=== PATIENT | female | born 1950 | race Caucasian/White ===

== ENCOUNTER 2020-01-23 19:10 | Emergency (ER) | payer OTHER ==
[~2020-01-23] VITALS: Ht 160 cm; Wt 90.7 kg
[2020-01-23] MEDS ORDERED: LISINOPRIL30 MG PO (21:04)
[2020-01-23] MEDS ORDERED: BUPROPION XL150 MG PO (21:04)
[2020-01-23] MEDS ORDERED: LEVOTHYROXINE125 MCG PO (21:04)
[2020-01-23] MEDS ORDERED: ZETIA10 MG PO (21:04)
[2020-01-23] MEDS ORDERED: ALPRAZOLAM 0.50.5 M1 PO (21:04)
[2020-01-23] MEDS ORDERED: QUETIAPINE FUM300 M1 PO (21:05)
[2020-01-23 21:14] VITALS: BP 173/86
== END 2020-01-23 21:29 | disposition home or self-care (01) ==
LOC: ER 19:10
DX: S01.01XA Laceration without foreign body of scalp, initial encounter (principal); I10 Essential (primary) hypertension; Z79.899 Other long term (current) drug therapy; W11.XXXA Fall on and from ladder, initial encounter; Y93.89 Activity, other specified; Y92.89 Other specified places as the place of occurrence of the external cause; Y99.8 Other external cause status

== ENCOUNTER 2021-11-15 15:53 | Emergency (ER) | payer OTHER ==
[~2021-11-15] VITALS: Ht 160 cm; Wt 94.3 kg
[~2021-11-15 15:53] MED LIST: ALPRAZOLAM 0.50.5 M1 PO; BUPROPION XL150 MG PO; LEVOTHYROXINE125 MCG PO; LISINOPRIL30 MG PO; QUETIAPINE FUM300 M1 PO; ZETIA10 MG PO
[2021-11-15 15:56] VITALS: BP 211/118
== END 2021-11-15 18:22 | disposition home or self-care (01) ==
LOC: ER 15:53
DX: M54.50 Low back pain, unspecified (principal); F31.9 Bipolar disorder, unspecified; I10 Essential (primary) hypertension; Z87.442 Personal history of urinary calculi; Z79.899 Other long term (current) drug therapy; Z88.2 Allergy status to sulfonamides; Z91.09 Other allergy status, other than to drugs and biological substances